=== PATIENT | female | born 1945 | race Caucasian/White ===

== ENCOUNTER 2023-04-11 18:03 | Emergency (ER) | payer MEDICARE, BC ==
[~2023-04-11] VITALS: Ht 162.6 cm; Wt 93.9 kg
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
--- NOTE | 2023-04-11 18:25 | NUR ---
AT BED SIDE FOR EVAL
[2023-04-11 19:52] VITALS: BP 155/76; TEMP 98.1
--- NOTE | 2023-04-11 19:52 | NUR ---
Patient discharged to home in stable condition. Written and verbal after care instructions given. Patient verbalizes understanding of instruction.
== END 2023-04-11 19:54 | disposition home or self-care (01) ==
LOC: ER 18:06
DX: R07.9 Chest pain, unspecified (principal); M25.519 Pain in unspecified shoulder; I10 Essential (primary) hypertension; J45.909 Unspecified asthma, uncomplicated; Z88.8 Allergy status to other drugs, medicaments and biological substances; V89.2XXA Person injured in unspecified motor-vehicle accident, traffic, initial encounter; Y93.89 Activity, other specified; Y92.89 Other specified places as the place of occurrence of the external cause; Y99.8 Other external cause status
CPT/HCPCS: 71045-TC